=== PATIENT | female | born 1945 | race Caucasian/White ===

== ENCOUNTER 2016-07-22 08:04 | Inpatient (IN) | payer MEDICARE ==
--- NOTE | 2016-07-19 22:10 | HP ---
PREOPERATIVE HISTORY AND PHYSICAL: DATE OF ADMISSION: 07/22/16 CHIEF COMPLAINT: Right shoulder pain. HISTORY OF PRESENT ILLNESS: Ms. Alex is a 70-year-old female who has had ongoing trouble with her right shoulder. She underwent MRI, which identified a malunion of her humeral head and also showed avascular necrosis of the humeral head with irregularity of the articular surface. She has also had a fall recently, which has exacerbated her pain. She has tried steroid injections with no relief. She has also tried physical therapy without relief. She has enrolled in pain management for back pain; however, the pain medications are not helping with her shoulder at this point. She is interested in surgical intervention for correction of the problem. PAST MEDICAL HISTORY: 1. Hypothyroidism. 2. Peripheral neuropathy. 3. Depression. 4. Chronic back pain. 5. Obstructive sleep apnea. 6. Fibromyalgia. 7. Type 2 diabetes. PAST SURGICAL HISTORY: 1. section. 2. Appendectomy. 3. Tonsillectomy. 4. Hemorrhoidectomy. 5. Bilateral knee replacement. 6. Right shoulder rotator cuff repair. 7. Stomach repair. 8. Umbilical hernia repair. 9. Trigger finger repairs, bilateral hands. She reports no complications with anesthesia with these procedures. CURRENT MEDICATIONS: 1. Metaxalone 800 mg 1 tab p.o. b.i.d. p.r.n. 2. Gabapentin 600 mg 1 tab p.o. t.i.d. 3. Levothyroxine 112 mcg p.o. daily. 4. Simvastatin 20 mg p.o. daily. 5. Zolpidem tartrate 10 mg 1 tab p.o. daily. 6. Furosemide 40 mg 1 tab p.o. daily p.r.n. 7. Docusate sodium 100 mg 1 tab p.o. b.i.d. p.r.n. 8. Duragesic 50 mcg per hour patch 1 patch q.72 hours. 9. Duloxetine HCL 40 mg 1 p.o. daily. ALLERGIES: CIPRO, SERTRALINE, PENICILLIN, QUINOLONES, TAPE, BEES, SCALLOPS, AVELOX, ZETIA, and LATEX. FAMILY HISTORY: Significant for cancer and heart disease. SOCIAL HISTORY: The patient is . She lives alone. 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 She does have family in the area who will help her after surgery. She is a former smoker. She quit smoking approximately 40 years ago. She denies alcoholic beverage use. She does not exercise. REVIEW OF SYSTEMS: Constitutional: Negative for recent hospitalization, fever , chills, night sweats, or weight loss. Head: Negative for headaches, lightheadedness, or balance problems. Cardiovascular: Negative for chest or arm pain with exertion, history of heart attack, heart murmur, heart palpitations, high blood pressure, embolism, or deep vein thrombosis. Respiratory: Negative for chronic cough, shortness of breath with exertion, asthma, or COPD. Gastrointestinal: Negative for heartburn, nausea, vomiting, diarrhea, constipation, or GERD. Genitourinary: Negative for nighttime urination, frequency of urination, urinary tract infections or kidney problems. Musculoskeletal: Positive for chronic back pain. Negative for recent fractures. Skin: Negative for rashes, lesions, lumps, or sores. Neurologic: Negative for seizure, stroke, or epilepsy. Positive for depression and anxiety. Endocrine: Positive for diabetes. Positive for thyroid problems. Hematology: Negative for easy bleeding, bruising, or anemia. PHYSICAL EXAMINATION GENERAL: She is a well-developed, well-nourished female in no acute distress at rest. She is alert and oriented x3 with appropriate mood and affect. VITAL SIGNS: The patient is 5 feet 3, 217 pounds. Blood pressure 130/70, pulse of 66, and temperature 97.5. HEENT: Normocephalic, atraumatic. Hearing and vision are grossly intact. NECK: Her trachea is midline. RESPIRATORY: Lungs clear to auscultation bilaterally. No wheezes, rales, or rhonchi. CARDIOVASCULAR: Regular rate and rhythm. No murmurs, rubs, or gallops. Normal S1 and S2. ABDOMEN: Soft, nondistended, nontender. Normal bowel sounds. EXTREMITIES: Exam of the right upper extremity: There is overall normal alignment. No gross deformities. She has very limited range of motion with the arm and is able to get to about 60 degrees of forward elevation and abduction. She has very limited internal and external rotation. She has tenderness to palpation diffusely about the shoulder, mostly in the posterior aspect. Her sensation to light touch is intact distally. She has a 2+ radial pulse. 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 PLAN: The patient is to undergo right total shoulder replacement by Dr. Eason on 07/22/16. The risks, benefits, and postoperative course were discussed with the patient at length and she would like to proceed. All of her questions were answered to her full satisfaction. She is understanding to call with any problems or concerns. We will follow up with the patient in the postoperative phase. KATT TERRELL [id number]/[facility] #: [id number] MTDSrinivasan
[~2016-07-22 08:04] MED LIST: Buffered Lidocaine 1% SYR 3ML* 3 ML/SYR SYRINGE INTRADERM ONE; Famotidine IV* 10 MG/ML 2 ML (20 mg) IV ONE; Metoclopramide TAB* 10 MG PO ONE
[2016-07-22] MEDS ORDERED: Metoclopramide TAB* 10 MG ONE (08:26)
[2016-07-22] MEDS ORDERED: Famotidine IV* 10 MG/ML 2 ML (20 mg) ONE (08:26)
[2016-07-22] MEDS ORDERED: Clindamycin 900 MG IVPREMIX(* 900 MG/50 ML SDV IV ONE (08:27)
[2016-07-22] MEDS ORDERED: Buffered Lidocaine 1% SYR 3ML* 3 ML/SYR SYRINGE ONE (08:27)
[2016-07-22] MEDS ORDERED: Ketorolac INJ* 30 MG/ML 1 ML VIAL ONE (09:14)
[2016-07-22] MEDS ORDERED: Ondansetron INJ* 2 MG/ML VIAL ONE (09:14)
[2016-07-22] MEDS ORDERED: Lidocaine 2% MPF* 2 ML VIAL ONE (09:14)
[2016-07-22] MEDS ORDERED: Propofol* 10 MG/ML 20 ML BTL IV PUSH ONE (09:14)
[2016-07-22] MEDS ORDERED: Dexamethasone IV* 4 MG/ML 1 ML (4 MG) ONE (09:14)
[2016-07-22] MEDS ORDERED: Cisatracurium* 2 MG/ML MDV 10 ML ONE (09:15)
[2016-07-22] MEDS ORDERED: Midazolam* 1 MG/ML 5 ML VIAL (5 MG) ONE (09:15)
[2016-07-22] MEDS ORDERED: KETAMINE HCL* 50 MG/ML 10 ML VIAL ONE (09:15)
[2016-07-22] MEDS ORDERED: fentaNYL* 50 MCG/ML 5 ML VIAL (250 MCG VIAL) ONE (09:15)
[2016-07-22] MEDS ORDERED: ROPIVACAINE 5 MG/ML 30 ML BTL (0.5%) ONE (09:16)
[2016-07-22] MEDS ORDERED: Bupivacaine 0.5% W/EPI SDV* 30 ML VIAL ONE (09:22)
[2016-07-22] MEDS ORDERED: Phenylephrine INJ* 10 MG/ML 1 ML VIAL (10 MG) ONE (11:37)
[2016-07-22] MEDS ORDERED: oxyCODONE/Acetamin 5/325 MG* TAB PO PRN ×2 (12:15→14:10)
[2016-07-22] MEDS ORDERED: DiMENhydriNATE IV* 50 MG/ML VIAL IV PUSH PRN (12:15)
[2016-07-22] MEDS ORDERED: HYDROmorphone INJ* 1 MG/ML CARPUJECT SYRINGE IV PRN (12:15)
[2016-07-22] MEDS ORDERED: fentaNYL* 50 MCG/ML 2 ML VIAL (100 MCG VIAL) IV PRN (12:15)
[2016-07-22] MEDS ORDERED: Levalbuterol 0.63MG/3ML NEB INH PRN (12:15)
[2016-07-22] MEDS ORDERED: Ondansetron INJ* 2 MG/ML VIAL IV PRN ×2 (12:15→14:10)
[2016-07-22] MEDS ORDERED: Albuterol/Ipratropium RESP(NF) MDI (Combivent Respimat) INH PRN (14:07)
[2016-07-22] MEDS ORDERED: Furosemide TAB* 40 MG PO PRN (14:07)
[2016-07-22] MEDS ORDERED: Bisacodyl SUPP* 10 MG SUPP PR PRN (14:10)
[2016-07-22] MEDS ORDERED: Polyethylene Glycol 3350* 17 GM PACKET PO PRN (14:10)
[2016-07-22] MEDS ORDERED: Ondansetron TAB* 4 MG PO PRN (14:10)
[2016-07-22] MEDS ORDERED: Acetaminophen TAB* 325 MG PO PRN (14:10)
[2016-07-22] MEDS ORDERED: diPHENhydraMINE IV* 50 MG/ML 1 ml VIAL (BENADRYL) IV PRN (14:10)
[2016-07-22] MEDS ORDERED: D5W 1/2 NS 1000 ML BAG* 1,000 ML IV SCH (15:00)
[2016-07-22] MEDS ORDERED: Docusate CAP* 100 MG PO SCH (15:00)
[2016-07-22] MEDS ORDERED: Dextrose 50% Syringe 50 ML* 25 GM/50 ML SYRINGE IV PUSH PRN (15:04)
--- NOTE | 2016-07-22 15:44 | RAD ---
INDICATION: Right total shoulder replacement surgery. COMPARISON: Comparison is made with a prior x-ray study of the right shoulder from July 04, 2016. TECHNIQUE: 3 views of the right shoulder were obtained. FINDINGS: The patient is status post right shoulder arthroplasty. The bones and prostheses are in normal alignment. There is a small amount of air within the soft tissues and several surgical shannan consistent with the patient's recent surgery. IMPRESSION: STATUS POST RIGHT SHOULDER REPLACEMENT SURGERY.
[2016-07-22] MEDS ORDERED: fentaNYL PATCH 50 MCG/HR TRANSDERM SCH (17:00)
[2016-07-22] MEDS: Atorvastatin* 10 MG TAB PO SCH (18:12)
[2016-07-22] MEDS: Insulin LISPRO* 1 UNITS UNIT SUBCUT SCH (18:16)
[2016-07-22] MEDS: fentaNYL Patch Check Q Shift 1 NOTE SCH (18:47)
[2016-07-22] MEDS: oxyCODONE/Acetamin 5/325 MG* TAB PO PRN (19:28)
[2016-07-22] MEDS: Clindamycin 600 MG IVPREMIX(* 600 MG/50 ML SDV IV SCH (19:28)
--- NOTE | 2016-07-22 20:42 | CONS ---
[facility] MEDICINE CONSULTATION REPORT: DATE OF CONSULT: 07/22/16 ATTENDING PHYSICIAN: Dr. Wiliam Eason. CONSULTING PHYSICIAN: Dr. Mirian Pat (dictation provided by Serene Barrera NP) . REASON FOR CONSULT: Medical co-management and patient admitted for right shoulder replacement. HISTORY OF PRESENT ILLNESS: Ms. Alex is a 70-year-old female who was interviewed in the PACU immediately after her shoulder surgery. She is a reasonable historian, but her history is also supported by her son, who is at the bedside. Per the report, Ms. Alex was doing well before surgery other than complaint of ongoing right shoulder pain. She has a history of obstructive sleep apnea, but has not been to tolerate the use of the CPAP machine. She states she has recently given a nasal cannula for the CPAP, which she has not tried it yet. She reports having diabetes, but states that it is diet controlled. Her son reports that she has a history of congestive heart failure, although I do not see that on the past medical history noted in the electronic medical record. According to the patient, she does take furosemide as needed when "my hands get swollen." PAST MEDICAL HISTORY: 1. Hypothyroidism. 2. Peripheral neuropathy. 3. Depression. 4. Chronic back pain. 5. Obstructive sleep apnea, not able to tolerate CPAP thus far. 6. Fibromyalgia. 7. Type 2 diabetes, diet controlled. 8. Question of CHF, on p.r.n. furosemide. PAST SURGICAL HISTORY: section, appendectomy, tonsillectomy, hemorrhoidectomy, bilateral knee replacement, right shoulder rotator cuff repair , stomach repair, umbilical hernia repair, trigger finger repairs in bilateral hands. MEDICATIONS: Outpatient are: 1. Metaxalone 800 mg 1 tab p.o. b.i.d. p.r.n. 2. Gabapentin 600 mg 1 tab p.o. t.i.d. 3. Levothyroxine 112 mcg p.o. daily. 4. Simvastatin 20 mg p.o. daily. 5. Zolpidem 10 mg p.o. daily. 6. Furosemide 40 mg p.o. daily p.r.n. 7. Docusate 100 mg one tab p.o. b.i.d. p.r.n. 8. Duragesic 50 mcg/hr patch, one patch q.72 hours. 9. Duloxetine 40 mg 1 tab p.o. daily. ALLERGIES: CIPRO, SERTRALINE, PENICILLIN, QUINOLONES, TAPE, BEES, SCALLOPS, AVELOX, ZETIA, and LATEX. FAMILY HISTORY: Reviewed and noncontributory. SOCIAL HISTORY: The patient lives alone. She quit smoking at least 20 to 25 years ago per the son's report. There is a report of daily beer drinking, but no more than 1 to 2 beers at a time. No report of symptoms of alcohol withdrawal in the past. She states her son will be the healthcare proxy. REVIEW OF SYSTEMS: A 14-point review of systems was completed with Ms. Alex and all those not mentioned above were negative. PHYSICAL EXAM: Temperature 97.7, heart rate 92, respiratory rate 18, O2 saturation 95% on 4 L nasal cannula, blood pressure 96/53. General: Ms. Alex is lying in the bed. She is in no acute distress. She is calm and cooperative with my examination. Neuro: She is alert and oriented x3. She moves all extremities equally. There is no facial asymmetry or focal weakness. Extraocular movements are intact. Heart: S1, S2. No murmur, rub, or gallop and regular. Lungs are clear to auscultation bilaterally with no accessory muscle use and good aeration. The abdomen is soft, nontender with bowel sounds positive x4. Extremities: No cyanosis or edema. Skin: Intact. DIAGNOSTIC STUDIES/LAB DATA: Preoperatively on 07/04/16, WBC 7.9, hemoglobin 11.6, hematocrit 35, platelet count 178. Sodium 138, potassium 4.0, chloride 104, serum bicarbonate 26, BUN 18, creatinine 0.96, glucose 87. ASSESSMENT AND PLAN: Ms. Alex is a 70-year-old female with past medical history of obstructive sleep apnea, has not been tolerating CPAP and type 2 diabetes, which has been diet controlled, who presents to the hospital today with need for right shoulder replacement with Dr. Eason. Our recommendations are as follows: 1. Right shoulder replacement, postop #0, management will be per Dr. Eason and his team. The patient will have physical and occupational therapy. She will have pain medications with a bowel regimen. We will monitor her H and H and transfuse as needed. 2. Type 2 diabetes. The patient has been diet controlled at home thus far at home. We will check hemoglobin A1c and she will have lispro sliding scale available for any high blood sugar during the hospitalization. She will have a consistent carbohydrate diet. 3. Question of congestive heart failure. The patient states she takes Lasix p.r.n. We will hold that at this point as her blood pressures are running systolically 90 to 110s. 4. Obstructive sleep apnea. The patient will be monitored with pulse oximetry overnight. 5. Hypothyroidism. Continue levothyroxine. 6. Depression. Continue BuSpar. 7. Chronic pain. Continue fentanyl patch with additional agents after the shoulder surgery. 8. DVT prophylaxis with heparin subcu per Ortho. 9. Disposition. To surgical unit. 10. Code status. Full code. TIME SPENT: Approximately 60 minutes were spent on the consultation of this patient, more than half the time spent with her at the bedside reviewing the events leading up to this hospitalization, performing the physical examination, reviewing the [place] [id number]/[facility] #: [id number] CARLI
[2016-07-22] MEDS: Gabapentin CAP(*) 300 MG PO SCH (20:53)
[2016-07-22] MEDS: busPIRone TAB* 10 MG PO SCH (20:53)
[2016-07-22] MEDS: traZODone TAB* 100 MG PO SCH (20:53)
[2016-07-22] MEDS: Heparin VIAL(*) 5000 UNITS/ML VIAL (FIVE THOUSAND) SUBCUT SCH (20:53)
[2016-07-22] MEDS: Docusate CAP* 100 MG PO SCH (20:53)
[2016-07-22] MEDS: Magnesium Hydroxide LIQ* 30 ML UDC PO SCH (20:54)
[2016-07-23] MEDS: Clindamycin 600 MG IVPREMIX(* 600 MG/50 ML SDV IV SCH ×2 (02:58→11:48)
[2016-07-23] MEDS: oxyCODONE/Acetamin 5/325 MG* TAB PO PRN ×4 (02:59→16:49)
--- NOTE | 2016-07-23 04:14 | OP ---
DATE OF OPERATION: 07/22/16 - ROOM #343 DATE OF : 47 ATTENDING SURGEON: Wiliam Eason MD. ASSISTANTS: 1. Yoly Gilmore RPA. 2. KATT Nix. ANESTHESIOLOGIST: Puneet Hernandez MD ANESTHESIA: Regional and general. PRE-OP DIAGNOSIS: Avascular necrosis of right shoulder humeral head. POST-OP DIAGNOSIS: Avascular necrosis of right shoulder humeral head. OPERATIVE PROCEDURE: Right shoulder hemiarthroplasty. ESTIMATED BLOOD LOSS: 200 cc. COMPLICATIONS: None. HARDWARE: Enid Bigliani [place] 8 mm x 130 mm stem, small offset head 15 x 40 mm. SUMMARY: Ms. Alex is a 70-year-old female who originally had fallen and was treated down in [place]. She had had increasing troubles with right shoulder pain and when she was evaluated in the office, had significant changes about the right humeral head. MRI confirmed that she had avascular necrosis of the head. We had tried conservative treatment with physical therapy, anti- inflammatories, and a steroid injection, but this had not given her any significant relief. I discussed with her that a shoulder replacement should work well to decrease her pain and improve her function. We had talked about some replacing the humeral head as well as the glenoid, and risks of surgery such as infection, scar formation, stiffness, instability, and continued pain were some of the risks discussed. She had been declared medically optimized and wished to proceed. DESCRIPTION OF PROCEDURE: The patient had a scalene block placed in the holding area. She was then brought back to the OR and an LMA was placed. Au catheter was also placed. She was then sat up in a beach chair position. Care was taken to make sure that her left arm was nicely padded on an armboard and the elbow was nice and free. Right shoulder area was prepped and then draped. Skin over the incisional area was infiltrated using 0.5% Marcaine with epinephrine. She had had previous surgery as well and the incision was just about 1.5 cm lateral to the coracoid. I thought I would be able to still use this and come down without creating a skin bridge between the 2 incisions. Incision was carried down through the skin and subcutaneous fat. Small bleeders encountered were ligated using electrocautery. She had been quite scarred down right in that area, and it was a little bit difficult to try and clear the tissue off the deltoid fascia. With trying to clean this however, cephalic vein was found and a plane was developed so that I could come underneath the deltoid. Cephalic vein came laterally with the deltoid and a deltoid retractor was placed. Again, she had quite a bit of scar anteriorly and with the deformity of the humeral head, landmarks were essentially nonexistent, not even the anterior circumflex artery and veins were visible. With internal and external rotation, I was eventually to palpate where her bicipital groove was as well as the area of the head versus the coracoid. Incision along the subscap was made just about 1 cm lateral to the bicipital groove and carried down right into the bone. Capsule and cuff were then peeled back and I was able to develop the plane between the subscap and supraspinatus as well. Inferiorly; however, I had a much more difficult trying to define the plane and I eventually came and started to detach some of the subscap from the inferior area of the humeral head. Once I found capsule, I was much more confident of where I was and then I was able to place a retractor and then clear capsule from the underside of where the humeral head would be. She had extensive damage from the avascular necrosis on the humeral head with extensive deformity as well. Her glenoid however, appeared nearly perfect. Coming back to the head, rongeur was used to remove loose bits of cartilage and bone as well as some of the exuberant bone, which had formed around the head where she had tried to heal her fracture. Sharp ship pilot dispatcher was then placed to start a hole, which was really quite narrow, right in the area of the greater tuberosity. Coming downwards with a 6 and then a 7 reamers, I was able to pass them by hand, and then with an 8, obtained chatter. I had templated for a 7. Outrigger was then assembled and a little bit of a clean-up cut was taken. Extremely little bone was taken with this, as she already had most of the head gone due to her avascular necrosis. Cutting guide was removed and trial humeral stem was placed. Small head was placed and with locating her, she actually sat really well. I had a little bit of play where I could shift her 50% anteriorly and posteriorly as well as pull it down inferiorly some as well. She now moved much more smoothly and I could even bring that arm up quite nicely. I did not think she impinged with doing so. Considering how good the glenoid look and the amount of scar tissue that she had , I thought we would well with just replacing the humeral head. A 8 x 130 stem was called for and then impacted into place. Offset head was then trialed and I liked the way that fit and offset head was then impacted into place as well. Subscap was repaired with transosseous sutures to the anterior aspect of the proximal humerus and the gap I had developed between supraspinatus and subscapularis was also closed. She was put through ROM and the rotator cuff repair held quite nicely. Shoulder had been copiously lavaged through the case. Using 2-0 Vicryl, cephalic vein was buried and the deltoid and shoulder and wound was again pulse lavaged. Subcutaneous tissues were reapproximated using 2-0 Vicryl. Skin was closed using shannan. Sterile dressing and a shoulder immobilizer were applied in the OR. The patient had the LMA removed in the OR and was stable on transfer to the recovery room. [id number]/[facility] #: [id number] MTDD
[2016-07-23] MEDS: Morphine INJ* 10 MG/ML 1 ML CARPUJECT IV PRN ×5 (04:52→23:15)
[2016-07-23] MEDS: Levothyroxine TAB* 112 MCG TAB PO SCH (05:36)
[2016-07-23] MEDS: fentaNYL Patch Check Q Shift 1 NOTE SCH ×2 (07:07→18:51)
[2016-07-23] MEDS: Aspirin Low Dose CHEW TAB* 81 MG PO SCH (07:25)
[2016-07-23] MEDS: Docusate CAP* 100 MG PO SCH ×2 (07:25→21:02)
[2016-07-23] MEDS: Gabapentin CAP(*) 300 MG PO SCH ×3 (07:25→21:02)
[2016-07-23] MEDS: Vitamin THERAPEUTIC TAB PO SCH (07:25)
[2016-07-23] MEDS: Magnesium Hydroxide LIQ* 30 ML UDC PO SCH ×2 (07:25→21:04)
[2016-07-23] MEDS: busPIRone TAB* 10 MG PO SCH ×3 (07:25→21:02)
[2016-07-23] MEDS: DULoxetine DR CAP* 20 MG CAP.DR PO SCH (07:25)
[2016-07-23] MEDS: Heparin VIAL(*) 5000 UNITS/ML VIAL (FIVE THOUSAND) SUBCUT SCH ×2 (07:26→21:06)
[2016-07-23 08:15] LABS: Hematocrit 30 % (35-47); Hemoglobin 9.9 g/dl (12.0-16.0)
[2016-07-23 08:32] LABS: BUN/Creatinine Ratio 19.2 (8-20); Calcium 8.8 mg/dL (8.6-10.3); EGFR African American 101.7 (>60); Potassium 3.7 mmol/L (3.5-5.0)
[2016-07-23] MEDS: Insulin LISPRO* 1 UNITS UNIT SUBCUT SCH ×3 (09:03→16:51)
--- NOTE | 2016-07-23 10:09 | PN ---
Progress Note - Progress Note SOAP: Subjective: [Pt was seen while she was sitting up in a chair today. She states that the block wore off this morning and she is in moderate pain. The pt states that the pain medications are helping a little bit. The pt states she is otherwise having no other issues, the numbness that she did have in the hand is now gone. ] Objective: [General: pt is alert, awake and oriented. In a moderate amount of pain R shoulder: dressing is c/d/i. Cryotherapy is on currently. Pt has sensation in the right upper extremity to light touch. 2+ radial pulse. ] Vital Signs Temp 98.0 F 07/23/16 11:51 Pulse 70 07/23/16 11:51 Resp 18 07/23/16 13:19 BP 128/69 07/23/16 11:51 Pulse Ox 96 07/23/16 12:00 Intake & Output 07/22/16 07/23/16 07/23/16 18:59 06:59 18:59 Intake Total 2750 2370 1040 Output Total 725 1800 1300 Balance 2024 570 -260 Weight 212 lb Intake: IV Fluids 2750 975 CLINDAMYCIN 900 MG 50 D5 1/2 NS 975 LR 2700 IVPB 55 Cleocin 55 Oral 1340 1040 Output: Urine 300 Au 725 1800 1000 Other: # Bowel Movements 0 Assessment: [ S/P R shoulder Hemiarthroplasty] Plan: [Continue ASA Continue Clindamycin Continue Heparin Continue PT/OT Continue Current pain medication]
[2016-07-23] MEDS: Atorvastatin* 10 MG TAB PO SCH (18:07)
[2016-07-23] MEDS: Ketorolac INJ* 15 MG/ML 1 ML VIAL IV PUSH PRN (18:07)
[2016-07-23] MEDS: traZODone TAB* 100 MG PO SCH (21:03)
[2016-07-23] MEDS: oxyCODONE TAB* 5 MG TAB PO PRN (21:04)
[2016-07-24] MEDS: Ketorolac INJ* 15 MG/ML 1 ML VIAL IV PUSH PRN (02:47)
[2016-07-24] MEDS: oxyCODONE/Acetamin 5/325 MG* TAB PO PRN ×3 (02:47→16:36)
[2016-07-24] MEDS ORDERED: fentaNYL PATCH 50 MCG/HR TRANSDERM SCH (04:00)
[2016-07-24] MEDS: Levothyroxine TAB* 112 MCG TAB PO SCH (05:44)
[2016-07-24 06:22] LABS: Hematocrit 28 % (35-47); Hemoglobin 9.4 g/dl (12.0-16.0)
[2016-07-24] MEDS: fentaNYL Patch Check Q Shift 1 NOTE SCH (06:47)
[2016-07-24] MEDS: Insulin LISPRO* 1 UNITS UNIT SUBCUT SCH ×3 (07:32→17:20)
[2016-07-24] MEDS: Magnesium Hydroxide LIQ* 30 ML UDC PO SCH (08:56)
[2016-07-24] MEDS: Vitamin THERAPEUTIC TAB PO SCH (08:57)
[2016-07-24] MEDS: Docusate CAP* 100 MG PO SCH (08:57)
[2016-07-24] MEDS: busPIRone TAB* 10 MG PO SCH ×2 (08:57→13:36)
[2016-07-24] MEDS: Gabapentin CAP(*) 300 MG PO SCH ×2 (08:57→13:36)
[2016-07-24] MEDS: Aspirin Low Dose CHEW TAB* 81 MG PO SCH (08:57)
[2016-07-24] MEDS: DULoxetine DR CAP* 20 MG CAP.DR PO SCH (08:58)
[2016-07-24] MEDS: Heparin VIAL(*) 5000 UNITS/ML VIAL (FIVE THOUSAND) SUBCUT SCH (08:59)
[2016-07-24] MEDS: oxyCODONE TAB* 5 MG TAB PO PRN ×2 (12:13→18:19)
[2016-07-24 16:51] VITALS: BP 124/57
[2016-07-24] MEDS: Atorvastatin* 10 MG TAB PO SCH (17:20)
--- NOTE | 2016-07-25 08:01 | DS ---
DISCHARGE SUMMARY: DATE OF ADMISSION: 07/22/2016 DATE OF DISCHARGE: 07/24/2016 ATTENDING SURGEON: Wiliam Eason MD PRINCIPAL DIAGNOSIS: Avascular necrosis right shoulder. SECONDARY DIAGNOSES: 1. Diabetes. 2. Hypothyroidism. 3. Depression. 4. Fibromyalgia. 5. Obstructive sleep apnea. PRINCIPAL PROCEDURE DONE: Right shoulder hemiarthroplasty. COMPLICATIONS: None. SUMMARY: Ms. Alex is a 70-year-old female with a history of troubles with her right shoulder. She had sustained a fracture several years ago and had a malunion which went on to develop avascular necrosis as well. She developed more and more of an irregularity of her articular surface; and, despite conservative treatment, has been having more and more troubles with pain and limited function of the right arm. She had impressive x-rays which showed significant changes of the humeral head. I discussed with her that a shoulder arthroplasty should work well to decrease her pain and improve her function. Risks of surgery such as infection, scar formation, stiffness, continued pain, hardware failure and instability were some of the risks discussed. She had been declared medically optimized and wished to proceed. HOSPITAL COURSE: The patient was admitted on the and underwent a right shoulder hemiarthroplasty. She tolerated the procedure well with no complications. While the block was in effect, she had good relief of her pain. As the block wore off, however, pain control was a bit of an issue. She was, though, already on a Fentanyl patch and had been using other pain medicines preoperatively so that there was less of an effect was not entirely surprising. Hospitalist service was consulted to help with management of her diabetes. Once her block had fully worn off, she was neurovascularly intact with good sensation of the first dorsal web space, ulnar border of the hand, and thenar eminence. She could easily flex and extend the wrist, abduct the fingers, point the index finder, and bring the thumb up and out of the plane of her hand , as well as flex and extend the elbow. She did not work much with PT with the shoulder on day #1; instead, just got up and walked around with them. His labs were good with an H and H of 9 and 28, and she would remain in this area throughout her hospital stay. The next day, that night she did not sleep well and she reports part of that was the bed and the constant checks. She reports that if she worked well with PT, she would like to go home. She did do everything with PT and was declared safe to go home with physical therapy. Her daughter will be with her tonight and for the next several days. Arrangements were made with the visiting nurse service to remove shannan on or about postoperative #10 as well as to work with pendulum exercises and some simple range of motion exercises. I would like to see her back in the office at 4 weeks postop. We will obtain repeat x-rays and start to progress her with outpatient physical therapy. I do not have the token with me right now. So when I go home mine, I will e-scribe in the Percocet 1 to 2 tabs every 4 to 6 hours with every 4 hours that she was taking here in the hospital so that she will be more comfortable and hopefully able to provide her nicely. If there are any problems or anything odd should their instructions are to give the office a call. [id number]/[facility] #: [id number] CARLI
== END 2016-07-24 18:30 | disposition home or self-care (01) | DRG 483 ==
LOC: AA 08:04 → SSU 16:09
PROVIDERS: ADMIT Orthopaedic Surgery; ATTEND Orthopaedic Surgery
PROC: 0RRJ0J6 Replacement of Right Shoulder Joint with Synthetic Substitute, Humeral Surface, Open Approach (ICD-10-PCS; principal; 2016-07-22 09:30)
DX: M87.221 Osteonecrosis due to previous trauma, right humerus (principal); E11.42 Type 2 diabetes mellitus with diabetic polyneuropathy; M89.711 Major osseous defect, right shoulder region; E03.9 Hypothyroidism, unspecified; F32.9 Major depressive disorder, single episode, unspecified; M79.7 Fibromyalgia; G47.33 Obstructive sleep apnea (adult) (pediatric); M54.9 Dorsalgia, unspecified; Z96.653 Presence of artificial knee joint, bilateral; Z88.1 Allergy status to other antibiotic agents; Z91.030 Bee allergy status; Z91.040 Latex allergy status; Z88.0 Allergy status to penicillin; Z88.8 Allergy status to other drugs, medicaments and biological substances; Z91.048 Other nonmedicinal substance allergy status; Z87.891 Personal history of nicotine dependence; Z79.899 Other long term (current) drug therapy; Z80.9 Family history of malignant neoplasm, unspecified; Z82.49 Family history of ischemic heart disease and other diseases of the circulatory system
CPT/HCPCS: 36415; 80048; 83036; 85014; 85018; 94760; A9270-GY; C1776; J1100; J1644; J1885; J2250; J2270; J2405; J2704; J2795; J3010